=== PATIENT | female | born 1980 | race Caucasian/White ===

== ENCOUNTER 2016-07-26 09:18 | Emergency (ER) | payer OTHER ==
--- NOTE | ~2016-07-26 | CR126 ---
[facility] A Service [facility] RADIOLOGY TEXT RESULTS PATIENT: NAI WILSON LOCATION: SED : 82 UNIT #: [id number] AGE: [address]: GUERA MALDONADO SEX: F ORDER DR: [id number] [place] [address] [id number] E MR#: [id number] Acc #: [id number] NAME: NAI WILSON : 1980 SEX: F STUDY DATE/TIME: 07/26/2016 09:38 UNIT: SED ROOM: STUDY DESCRIPTION: CR Foot Complete Min 3 View Lt Attending Physician: Guera Maldonado Aprn Ordering Physician: Hortensia Westbrook M.D. Primary Care Physician: Erick Celestin Aprn MEDICAL IMAGING REPORT This report is preliminary unless electronic signature is present. EXAM Left foot 3 views 07/26/2016 0938 hours HISTORY 35-year-old woman complaining of foot pain for 45 minutes. Patient stubbed toes today. COMPARISON Left foot 08/27/2015. FINDINGS AP, lateral and oblique views demonstrate overall normal bone density. There is old healed fracture deformity of the distal fourth metatarsal since prior study where there was an acute fracture. IMPRESSION 1. Interval healing of fracture of the distal fourth metatarsal with mild deformity since prior study of 08/27/2015 where there was an acute fracture. 2. No acute fracture or dislocation. Dictated by... Saige Tai M.D. THIS IS AN ELECTRONICALLY VERIFIED REPORT Saige Tai M.D. at 07/26/2016 2:26 PM ADALID/constantino TD: 07/26/2016 12:56 JOB #: [id number] [facility] A [facility] RADIOLOGY TEXT RESULTS PATIENT: NAI WILSON LOCATION: SED : 82 UNIT #: [id number] AGE: [address]: GUERA MALDONADO SEX: F ORDER DR: MEDICAL IMAGING REPORT Page 1 of 1
[~2016-07-26 09:18] MED LIST: ADVIL200 M1 PO; AEROSPAN8.9 GM INH; AMOXICILLIN PO; AMOXICILLIN500 M1; ATARAX PO; BENADRYL A12.5 MG/1 PO; BENADRYL ANTI-I85 GM TP; BENADRYL25 M3 PO; CIPRO PO; DARVOCET-N 1001 TAB PO; DICLOFENAC PO; ELIMITE60 GM TOP; ERYTHROMYCIN O3.5 GM OD; FLEXERIL PO; FLEXERIL10 M1 PO; FLONASE 0.05% N16 G1; GABAPENTIN300 MG PO; HYDROCODON-ACE1 EAC9 PO; IBUPROFEN PO; IMODIUM2 MG PO; LEVOTHYROXINE75 MCG PO; LEXAPRO20 MG PO; LO LOESTRIN FE1 EACH PO; LYRICA; MED FOR IBS; MONTELUKAST SOD10 MG PO; NAPROSYN500 MG PO; PAMPRIN MAX PA1 EACH; PERCOCET; PHENERGAN PO; PHENERGAN25 M1 PO; PREDNISONE PO; PRENATAL1 TA1 PO; PROAIR HFA8.5 GM INH; PROMETHAZINE D118 ML PO; PYRIDIUM PO; SUDAFED30 M1 PO; TAMIFLU75 M1 PO; TOPIRAMATE50 MG PO; TUMS CALCI300 MG( 75 PO; TUMS500 M1 PO; TYLENOL #3 PO; ULTRAM PO; VICODIN; VOLTAREN75 MG PO; WELCHOL625 MG PO; ZYRTEC PO; ZYRTEC10 M1 PO; ZYRTEC10 M2 PO
[2016-07-26] MEDS ORDERED: LEVOXYL112 MCG PO (09:25)
[2016-07-26] MEDS ORDERED: TOPAMAX (09:26)
[2016-07-26] MEDS ORDERED: DIPHENHYDRAMINE50 M1 (09:26)
[2016-07-26] MEDS ORDERED: HYDROCODON-ACE1 EAC7 (09:26)
== END 2016-07-26 11:40 | disposition home or self-care (01) ==
LOC: SED 09:18
DX: S90.122A Contusion of left lesser toe(s) without damage to nail, initial encounter (principal); Z88.1 Allergy status to other antibiotic agents; W23.0XXA Caught, crushed, jammed, or pinched between moving objects, initial encounter; Y92.9 Unspecified place or not applicable
CPT/HCPCS: 29405; 73630; 99283

== ENCOUNTER 2016-09-20 22:58 | Emergency (ER) | payer OTHER ==
--- NOTE | ~2016-09-20 | CT2 ---
[facility] A Service [facility] RADIOLOGY TEXT RESULTS PATIENT: NAI WILSON LOCATION: SED : 82 UNIT #: [id number] AGE: [address]: GUERA MALDONADO SEX: F ORDER DR: [id number] [address] [address] [id number] E MR#: [id number] Acc #: [id number] NAME: NAI WILSON : 1980 SEX: F STUDY DATE/TIME: 09/21/2016 2:28 UNIT: SED ROOM: STUDY DESCRIPTION: CT Abd and Pelv W Cont Attending Physician: Guera Maldonado Aprn Ordering Physician: Guera Maldonado Aprn Primary Care Physician: Erick Celestin Aprn MEDICAL IMAGING REPORT This report is preliminary unless electronic signature is present. EXAM CT abdomen and pelvis with contrast. HISTORY Nausea and vomiting starting today. COMPARISON STUDY 08/11/2009 TECHNIQUE The patient was given 100 mL of Isovue-370 and axial 5 mm images were obtained through the abdomen and pelvis. Sagittal and coronal reconstructions were generated. This CT exam was performed with one or more of the following radiation dose reduction techniques: automatic exposure control, adjustment of mA and/or kV according to patient size, and iterative reconstruction. FINDINGS The lung bases are clear. The liver, gallbladder, spleen, pancreas, adrenal glands, and kidneys are normal in appearance. The aorta is normal in size and there is no adenopathy. The appendix is normal. The splenic flexure and left colon are slightly collapsed. There is no evidence of inflammation. The uterus and adnexal regions and bladder are normal. The bones are unremarkable. IMPRESSION 1. Normal appendix. 2. No CT evidence of colitis or inflammation. The left colon is collapsed perhaps due to diarrhea. 3. Otherwise normal. [facility] A Service [facility] RADIOLOGY TEXT RESULTS PATIENT: NAI WILSON LOCATION: SED : 82 UNIT #: [id number] AGE: [address]: GUERA MALDONADO SEX: F ORDER DR: Dictated by... Inocente Salcedo M.D. THIS IS AN ELECTRONICALLY VERIFIED REPORT Inocente Salcedo M.D. at 09/21/2016 1:43 PM SAHIL/jose de jesus TD: 09/21/2016 13:38 JOB #: [id number] MEDICAL IMAGING REPORT Page 1 of 1
[~2016-09-20 22:58] MED LIST changes: +DIPHENHYDRAMINE50 M1; +HYDROCODON-ACE1 EAC7; +LEVOXYL112 MCG PO; +TOPAMAX
[2016-09-21 00:17] LABS: BASOPHIL% 0.6 % (0-2.5); EOSINOPHIL% 0.5 % (0.0-7.0); HEMATOCRIT 41.4 % (35.0-45.0); LYMPHOCYTE# 2.1 X10e3 (1.0-3.5); LYMPHOCYTE% 27.1 % (17.0-45.0); MEAN CELL VOLUME 89.3 FL (83-96); MEAN CORPUSCULAR HEMOGLOBIN 30.2 PG (28-34); MEAN CORPUSCULAR HGB CONC 33.9 g/dL (30-36); MEAN PLATELET VOLUME 9.5 FL (6.5-11.5); MONOCYTE# 0.5 X10e3 (0-1.0); NEUTROPHIL# 5.1 X10e3 (1.5-7.1); NEUTROPHIL% 64.8 % (40-75); PLATELET COUNT 197 X10e3 (140-420); RED BLOOD COUNT 4.63 X10e (3.90-5.30); RED CELL DISTRIBUTION WIDTH 12.5 % (11.0-15.5); WHITE BLOOD COUNT 7.9 X10e3 (4.0-10.5)
[2016-09-21 00:19] LABS: DIFF IND NO
[2016-09-21 00:29] LABS: ALBUMIN SERUM 4.4 g/dL (3.5-5.0); ALKALINE PHOSPHATASE 53 U/L (32-92); ALT (SGPT) 12 U/L (10-40); AMYLASE 23 U/L (0-46); AST (SGOT) 17 U/L (10-42); BILIRUBIN,TOTAL 0.4 mg/dL (0.2-2.0); BLOOD UREA NITROGEN 8 mg/dL (9-23); BUN/CREATININE RATIO 8.88; CALCIUM SERUM 9.2 mg/dL (8.4-10.2); CARBON DIOXIDE 20 mmol/L (22-31); CHLORIDE 108 mmol/L (100-111); CREATININE SERUM 0.9 mg/dL (0.6-1.4); GLOM FILT RATE Estimated 83.5 mL/min (>60); GLUCOSE FASTING 110 mg/dL (70-110); LIPASE 29 U/L (22-51); POTASSIUM 3.5 mmol/L (3.5-5.1); PROTEIN TOTAL SERUM 8.1 g/dL (6.0-8.3); SODIUM 137 mmol/L (135-145)
[2016-09-21 00:33] LABS: BILIRUBIN, DIRECT <0.1 mg/dL (0.0-0.2); BILIRUBIN,INDIRECT 0.3 mg/dL (0.0-0.9)
[2016-09-21 01:21] LABS: URINE SOURCE CLEAN CATCH
[2016-09-21 01:23] LABS: URINE APPEARANCE CLEAR; URINE BILIRUBIN NEG (NEG); URINE BLOOD TRACE-LYSED (NEG); URINE COLOR YELLOW; URINE GLUCOSE NEG (NORM); URINE KETONE NEG (NEG); URINE LEUKOCYTE ESTERASE TRACE (NEG); URINE NITRATE NEG (NEG); URINE PROTEIN NEG (NEG); URINE SPECIFIC GRAVITY <=1.005 (1.003-1.035); URINE UROBILINOGEN 0.2 MG/DL (NORM)
[2016-09-21 01:29] LABS: CULTURE INDICATED? NO; MICRO INDICATED? YES; URINE BACTERIA NEG (NEG)
[2016-09-21 01:30] LABS: URINE SQUAMOUS EPITHELIAL CELL FEW /[HPF]
== END 2016-09-21 03:40 | disposition home or self-care (01) ==
LOC: SED 22:58
PROVIDERS: Nurse Practitioner Family
DX: R10.84 Generalized abdominal pain (principal); R11.2 Nausea with vomiting, unspecified; R19.7 Diarrhea, unspecified; J45.909 Unspecified asthma, uncomplicated; G43.909 Migraine, unspecified, not intractable, without status migrainosus; Z88.8 Allergy status to other drugs, medicaments and biological substances; Z79.899 Other long term (current) drug therapy
CPT/HCPCS: 36415; 74177; 80048; 80076; 81003; 82150; 82270; 83690; 85025; 96361; 96374; 96375; 96376; 99284; J2270; J2550; Q9967